=== PATIENT | female | born 1950 | race African-American/Black ===

== ENCOUNTER 2021-03-07 11:12 | Outpatient (CLI) | payer OTHER | END 2021-03-07 12:02 | disposition home or self-care (01) | LOC: WOUND MED 11:12 | PROVIDERS: ATTEND Specialist | DX: L98.492 Non-pressure chronic ulcer of skin of other sites with fat layer exposed (principal); R60.0 Localized edema | CPT/HCPCS: 11042; G0463; A4554; A4930; A6196; A6216; A6219 ==

== ENCOUNTER 2021-03-11 10:53 | Outpatient (CLI) | payer OTHER | END 2021-03-11 12:15 | disposition home or self-care (01) | LOC: WOUND MED 10:53 | PROVIDERS: ATTEND Specialist | DX: L98.492 Non-pressure chronic ulcer of skin of other sites with fat layer exposed (principal); R60.0 Localized edema | CPT/HCPCS: 97602; A4554; A4930; A6196; A6212; A6216 ==

== ENCOUNTER → 2021-03-15 | Outpatient (CLI) | payer OTHER ==
[~2021-03-15] MED LIST: BACLOFEN10 MG PO
== END | disposition home or self-care (01) ==
LOC: WOUND MED 09:30
PROVIDERS: ATTEND Specialist
DX: L98.492 Non-pressure chronic ulcer of skin of other sites with fat layer exposed (principal); R60.0 Localized edema
CPT/HCPCS: 11042; A4554; A4930; A6216; A6219

== ENCOUNTER 2021-03-18 11:19 | Outpatient (CLI) | payer OTHER ==
[2021-03-18] MEDS ORDERED: BACLOFEN10 MG PO (13:07)
== END 2021-03-18 12:40 | disposition home or self-care (01) ==
LOC: WOUND MED 11:19
PROVIDERS: ATTEND Specialist
DX: L98.492 Non-pressure chronic ulcer of skin of other sites with fat layer exposed (principal); R60.0 Localized edema
CPT/HCPCS: 97602; A4554; A4930; A6196; A6216; A6219

== ENCOUNTER 2021-03-18 12:23 | Emergency (ER) | payer OTHER ==
[~2021-03-18] VITALS: Ht 162.6 cm; Wt 49.9 kg
[2021-03-18] MEDS ORDERED: BACLOFEN10 MG PO (13:07)
== END 2021-03-18 18:07 | disposition home or self-care (01) ==
LOC: ER 12:23
DX: L89.221 Pressure ulcer of left hip, stage 1 (principal); M25.552 Pain in left hip

== ENCOUNTER 2021-03-22 10:58 | Outpatient (CLI) | payer OTHER | END 2021-03-22 12:15 | disposition home or self-care (01) | LOC: WOUND MED 10:58 | PROVIDERS: ATTEND Specialist | DX: L98.492 Non-pressure chronic ulcer of skin of other sites with fat layer exposed (principal); R60.0 Localized edema | CPT/HCPCS: 11042; A4554; A4930; A6216; A6219 ==

== ENCOUNTER → 2021-03-29 | Outpatient (CLI) | payer OTHER | END | disposition home or self-care (01) | LOC: WOUND MED 09:00 | PROVIDERS: ATTEND Specialist | DX: L98.492 Non-pressure chronic ulcer of skin of other sites with fat layer exposed (principal); R60.0 Localized edema | CPT/HCPCS: 11042; A4554; A4930; A6216; A6220 ==

== ENCOUNTER → 2021-04-02 | Outpatient (CLI) | payer OTHER | END | disposition home or self-care (01) | LOC: WOUND MED 08:15 | PROVIDERS: ATTEND Specialist | DX: L98.492 Non-pressure chronic ulcer of skin of other sites with fat layer exposed (principal); R60.0 Localized edema | CPT/HCPCS: 97602; A4554; A4930; A6212; A6216 ==